=== PATIENT | male | born 1975 | race Caucasian/White ===

== ENCOUNTER 2025-01-17 16:25 | Outpatient (CLI) | payer OTHER, SELFPAY ==
[2025-01-17 17:40] LABS: Basophils Absolute Auto 0.1 K/mm3 (0.0-0.1); Basophils Percent Auto 1.1 % (0.2-1.2); Eosinophils Absolute Auto 0.5 K/mm3 (0-0.3); Eosinophils Percent Auto 6.6 % (0-4.4); Hematocrit 44.9 % (42.0-52.0); Hemoglobin 15.8 g/dL (14.0-18.0); Immature Granulocyte Absolute 0.02 K/mm3 (0.00-0.031); Immature Granulocyte Percent A 0.3 % (0-0.5); Lymphocytes Absolute Auto 2.75 K/mm3 (0.9-3.2); Lymphocytes Percent Auto 37.9 % (18.3-44.2); Mean Corpuscular HGB Conc 35.2 g/dl (32-36); Mean Corpuscular Hemoglobin 32.2 pg (26-34); Mean Corpuscular Volume 91.4 fl (80-100); Mean Platelet Volume 8.7 fl (7.4-10.4); Monocytes Absolute Auto 0.7 K/mm3 (0.1-0.6); Monocytes Percent Auto 9.6 % (2.6-8.5); Neutrophils Absolute Auto 3.2 K/mm3 (1.3-6.7); Neutrophils Percent Auto 44.5 % (45.5-73.1); Platelet Count Result 331 k/mm3 (150-375); Red Blood Count 4.91 M/mm3 (4.6-6.20); Red Cell Distribution Width 11.7 % (11.5-14.5); White Blood Count 7.3 K/mm3 (4.5-10.0)
[2025-01-17 18:01] LABS: Alanine Aminotransferase 59 U/L (6-50); Albumin Level 4.6 g/dL (3.5-5.1); Alkaline Phosphatase 67 U/L (38-126); Anion Gap 11 mmol/L (4-12); Aspartate Amino Transferase 38 U/L (17-59); Bilirubin,Total 0.5 mg/dL (0.2-1.3); Blood Urea Nitrogen 13 mg/dL (9-20); Calcium 9.4 mg/dL (8.4-10.2); Carbon Dioxide 28 mmol/L (22-30); Chloride 103 mmol/L (98-107); Cholesterol 230 mg/dL (0-200); Estimated Glomerular Filt Rate > 60; Glucose 83 mg/dL (65-110); HDL Direct 44 mg/dL; Sodium 142 mmol/L (137-145); Triglycerides 242 mg/dL (<150)
[2025-01-17 18:12] LABS: LDL Cholesterol Direct 136 mg/dL
== END 2025-01-17 16:26 | disposition home or self-care (01) ==
LOC: ANHLAB 16:26
PROVIDERS: PCP Nurse Practitioner Family; Visit Provider Nurse Practitioner Family
DX: Z00.00 Encounter for general adult medical examination without abnormal findings (principal); J45.909 Unspecified asthma, uncomplicated; Z76.89 Persons encountering health services in other specified circumstances
CPT/HCPCS: 36415; 80053; 80061; 84443; 85025

== ENCOUNTER 2025-11-11 12:37 | Emergency (ER) | payer OTHER, SELFPAY ==
--- NOTE | ~2025-11-11 | XR_ITS ---
EXAMINATION: XR chest 2V DATE: 11/11/2025 13:06 INDICATION: Chest pain TECHNIQUE: PA and lateral views of the chest were obtained. COMPARISON: None FINDINGS: The lungs are clear with no focal airspace opacities, pulmonary edema, pleural effusion or pneumothorax. The cardiomediastinal silhouette is normal. Visualized bones and soft tissues are unremarkable. IMPRESSION: 1. Normal chest radiograph. Reviewed, dictated and finalized at location A. RNMENT GUARD IMPRESSION: 1. Normal chest radiograph.
--- NOTE | 2025-11-11 12:38 | ECG_ITS ---
Test Date: 2025-11-11 12:46:03 Measurements Intervals Clifford Rate: 82 P: 40 TN: 154 QRS: 15 QRSD: 92 T: 18 QT: 362 QTc: 423 Interpretive Statements SINUS RHYTHM POSSIBLE LEFT ATRIAL ENLARGEMENT BORDERLINE ST-T WAVE ABNORMALITY- INFERIOR LEADS BORDERLINE ECG No previous ECG available for comparison Electronically Signed On 11-11-2025 13:20:04 TIP FIXER by Rohit Regalado D.O.
--- OUTSIDE RECORDS SUMMARY | 2025-11-11 12:39 | XMS_ITS | Clinical Summary ---
Author Organization [facility] Address [address] [place] [address] Care Team Providers Care Beater Lead Name Role Phone No, Physician Primary Care Provider [phone] Allergies No known active allergies Medications oseltamivir (TAMIFLU) 75 mg capsule Take 1 capsule (75 mg total) by mouth every 12 (twelve) hours 10 capsule 4 Active naproxen (NAPROSYN) 500 mg tablet Take 1 tablet (500 mg total) by mouth 2 (two) times a day as needed for pain or headaches 20 tablet 4 Active prochlorperazin e (COMPAZINE) 10 mg tablet Take 1 tablet (10 mg total) by mouth 2 (two) times a day as needed for nausea or vomiting 10 tablet 4 Active Social History Tobacco Use Types Packs/Day Years Used Date Smoking Tobacco: Never Assessed Personal Safety Answer Date Recorded Have you ever been in or are you currently in a harmful physical or emotional relationship or is someone making you feel afraid or unsafe? Denies 05/11/2024 Sex and Gender Information Value Date Recorded Sex Assigned at Not on file Legal Sex Male 4:07 PM CDT Gender Identity Not on file Sexual Orientation Not on file Last Filed Vital Signs Vital Sign Reading Time Taken Comments Blood Pressure 110/85 05/11/2024 1:40 PM CDT Pulse 75 05/11/2024 1:40 PM CDT Temperature 36.4 C (97.5 F) 05/11/2024 10:27 AM CDT Respiratory Rate 18 05/11/2024 1:40 PM CDT Oxygen Saturation 96% 05/11/2024 1:40 PM CDT Inhaled Oxygen Concentration - - Weight 83.9 kg (185 lb) 05/11/2024 10:27 AM CDT Height 177.8 cm (5' 10) 05/11/2024 10:27 AM CDT Body Mass Index 26.54 05/11/2024 10:27 AM CDT Plan of Treatment Health Maintenance Due Date Last Done Comments Colon Cancer Screening-Colonoscopy 1974 Depression Screening 1974 Hepatitis C Screening 1974 Prostate Cancer Screening-PSA 1974 DTaP/Tdap/Td Vaccine (1 - Tdap) 1985 Hepatitis B Screening 1992 Regular Well Visit/Exam 18-64 1992 Pneumococcal vaccine <65 (1 of 2 - PCV) 1993 Zoster Vaccine (1 of 2) 2024 Influenza Vaccine (#1) 2025 Insurance [facility] Our Security [employer]PP[employer] Address: [address] [address] [facility] [employer] Address: [address] [place] [id number] Care Teams Beater Lead Relationship Specialty Start Date End Date No, Physician PCP - General 04/11/23
--- OUTSIDE RECORDS SUMMARY | 2025-11-11 12:39 | XMS_ITS | Clinical Summary ---
Author Organization [facility] Address [address] [place] [address] Care Team Providers Care Admissions Consultant Name Role Phone Unavailable Primary Care Provider Unavailabl e Source Comments [facility],non-owned Affiliates and Associated Physician Practices is amultiple site organization consisting of ambulatory clinics and hospital sitesin [place], [place], [place] and [place]. This disclosure is being madepursuant to the Care Everywhere program and may not contain all information available regarding this patient. Last updated 18.[facility] [employer] Allergies No known active allergies Medications * Be aware that medications may not be up to date on this document. Alwaysverify current medications with the patient. ondansetron, disintegrating, (ZOFRAN ODT) 8 MG tablet Dissolve 1 Tab under the tongue every 4 hours as needed for Nausea/Vomiting Allow tablet to dissolve on the tongue 30 Tab 0 08/28/20 15 Active famotidine (PEPCID) 20 MG tablet Take 1 Tab by mouth at bedtime 30 Tab 0 08/28/20 15 Active naproxen (NAPROSYN) 500 MG tablet Take 1 Tab by mouth 2 times daily as needed for Pain 20 Tab 03/29/20 17 Active HYDROcodone-delicia taminophen (NORCO) 5-325 MG tablet Take 1 tablet by mouth every 6 hours as needed for Pain 15 tablet 03/13/20 20 Active hydrocortisone (ANUSOL-HC) 25 MG suppository Insert 1 suppository into the rectum 2 times daily 12 suppository 03/13/20 20 Active docusate sodium (COLACE) 100 MG capsule Take 1 capsule by mouth 2 times daily 20 capsule 03/13/20 20 Active cyclobenzaprine (Flexeril) 10 MG tablet Take 1 (one) tablet by mouth nightly as needed for Muscle Spasms 7 tablet 08/24/20 23 Active Social History Tobacco Use Types Packs/Day Years Used Date Smoking Tobacco: Never Smokeless Tobacco: Never Tobacco Cessation:Counseling Given: Not Answered Alcohol Use Standard Drinks/Week Comments Yes 0 (1 standard drink = 0.6 oz pure alcohol) 2 a day casually with dinner sometimes AUDIT-C Answer Date Recorded Q1: How often do you have a drink containing alc ohol? 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 Gender Identity Not on file Sexual Orientation Not on file Last Filed Vital Signs Vital Sign Reading Time Taken Comments Blood Pressure 134/104 08/24/2023 9:22 AM CDT Pulse 93 08/24/2023 9:22 AM CDT Temperature 36.7 C (98.1 F) 08/24/2023 9:22 AM CDT Respiratory Rate 20 08/24/2023 9:22 AM CDT Oxygen Saturation 97% 08/24/2023 10:29 AM CDT Inhaled Oxygen Concentration - - Weight 83.9 kg (185 lb) 08/24/2023 9:22 AM CDT Height 177.8 cm (5' 10) 08/24/2023 9:22 AM CDT Body Mass Index 26.54 08/24/2023 9:22 AM CDT Plan of Treatment Health Maintenance Due Date Last Done Comments COLOGUARD (AGES 45-75) - COL ON CA SCREENING 1974 COLON MONITORING 1974 COLONOSCOPY - COLON CA SCREENING 1974 CT COLONOGRAPHY - COLON CA SCREENING 1974 Colorectal Cancer Screening 1974 FIT - COLON CA SCREENING 1974 FLEX SIG - COLON CA SCREENING 1974 LIPID TESTING 1974 HIV SCREENING 1989 HEPATITIS C SCREENING 06/01/1992 DTAP/TDAP/TD VACCINES (1 - Tdap) 1993 HEPATITIS B VACCINE (1 of 3 - 19+ 3-dose series) 1993 PNEUMOCOCCAL VACCINE 50+ (1 of 1 - PCV) 2024 ZOSTER VACCINE (1 of 2) 2024 DEPRESSION SCREENING 11/20/2024 COVID-19 VACCINE (2 - 2024-2 6 season) 2025 04/05/2023 INFLUENZA VACCINE (#1) 2025 HIB VACCINE Aged Out No longer eligi ble based on patient's age to complete this topic HPV VACCINE Aged Out No longer eligi ble based on patient's age to complete this topic MENINGOCOCCAL (Group B) VACC INE SHARED DECISION-MAKING Aged Out No longer eligibl e based on patient's age to complete this topic MENINGOCOCCAL GROUPS A/C/Y/W VACCINE Aged Out No longer eligible b ased on patient's age to complete this topic Insurance [facility] [place] [address] [facility] Advance Directives Documents on File Type Date Recorded Patient Rf Manager Expl anation Adv Directive/Living Will/POA 03/29/2017 12:26 PM Medication Assistanc e Program
--- OUTSIDE RECORDS SUMMARY | 2025-11-11 12:39 | XMS_ITS | Clinical Summary ---
Author Organization [facility] Address [address] [place] [address] Care Team Providers Care Manager Of Procurement Name Role Phone Unavailable Primary Care Provider Unavailabl e Allergies Active Allergy Reactions Criticality Noted Date Comments Prednisone Other 12/10/2023 Psychiatric Medications traMADoL (ULTRAM) 50 mg tablet Take 1 tablet (50 mg total) by mouth at night if needed for severe pain. 20 tablet 05/29/2024 Active Active Problems No known active problems Social History Tobacco Use Types Packs/Day Years Used Date Smoking Tobacco: Never Assessed Sex and Gender Information Value Date Recorded Sex Assigned at Not on file Legal Sex Male 5:33 AM PDT Gender Identity Not on file Sexual Orientation Not on file Last Filed Vital Signs Vital Sign Reading Time Taken Comments Blood Pressure 151/92 06/05/2024 12:03 PM CDT Pulse - - Temperature - - Respiratory Rate - - Oxygen Saturation - - Inhaled Oxygen Concentration - - Weight - - Height - - Body Mass Index - - Plan of Treatment Health Maintenance Due Date Last Done Comments Dental Oral Exam 1974 Dental Prophylaxis 1974 Dental X-Ray: Bitewings 1974 Dental X-Ray: Full Mouth 1974 Dental X-Ray: Panoramic 05/30/2027 05/29/2024 Procedures Procedure Name Priority Date/Time Associated Diagnosis Comments PANORAMIC RADIOGRAPHIC IMAGE Routine 05/29/2024 10:30 AM CDT from Last 3 Months or Most Recently Relevant to Health Maintenance Insurance [facility] PPO
--- OUTSIDE RECORDS SUMMARY | 2025-11-11 12:39 | XMS_ITS | Encounter Summary ---
Author Organization [facility] Health Address [address] [place] [address] Care Team Providers Care Supervisor Tower Name Role Phone Unavailable Primary Care Provider Unavailabl e Prior Encounters Date Type Department Care Team Description 06/05/2024 Travel 06/05/2024 12:00 PM CDT Office Visit [facility] [address] [place] [address] Mariama Hamm DDS 05/29/2024 10:30 AM CDT Office Visit [facility] [address] [place] [address] Jocelyne Caraballo DDS Last Filed Vital Signs Vital Sign Reading Time Taken Comments Blood Pressure 151/92 06/05/2024 12:03 PM CDT Pulse - - Temperature - - Respiratory Rate - - Oxygen Saturation - - Inhaled Oxygen Concentration - - Weight - - Height - - Body Mass Index - - Plan of Treatment Not on file Procedures Procedure Name Priority Date/Time Associated Diagnosis Comments OS CONSULT Routine 06/05/2024 12:00 PM CDT 29 EXTRACTION, ERUPTED TOOTH REQUIRING REMOVAL OF BONE AND/OR SECTIONING OF TOOTH Routine 06/05/2024 12:00 PM CDT PANORAMIC RADIOGRAPHIC IMAGE Routine 05/29/2024 10:30 AM CDT BITEWING - SINGLE RADIOGRAPHIC IMAGE Routine 05/29/2024 10:30 AM CDT SINGLE X-RAY Routine 05/29/2024 10:30 AM CDT ADDITIONAL X-RAY Routine 05/29/2024 10:3 0 AM CDT LIMITED ORAL EVALUATION - PROBLEM FOCUSED Routine 05/29/2024 10:30 AM CDT Visit Diagnoses Not on file Insurance [facility] PPO
--- OUTSIDE RECORDS SUMMARY | 2025-11-11 12:39 | XMS_ITS | Clinical Summary ---
[facility] Address [address] [place] [address] Care Team Providers Care Commercial Carpenter Name Role Phone Capo Farrar MD Primary Care Provid er Allergies Active Allergy Reactions Criticality Noted Date Comments Prednisone Other (See Comments) 12/10/2023 Psychiatric Medications inhalational spacing device (Microchamber) SpacerIndications :Upper respiratory tract infection, unspecified type,Exacerbation of asthma, unspecified asthma severity, unspecified whether persistent,Shortn ess of breath Use with albuterol inhaler 1 Each 4 Active budesonide-formot Sharmin (SYMBICORT) 160-4.5 mcg/actuation HFA Aerosol InhalerIndication s:Moderate persistent asthma with acute exacerbation Take 2 Puffs by inhalation 2 times daily. 10.2 Gram 3 4 Active Active Problems Problem Noted Date Diagnosed Date Asthma 02/14/2014 Encounters Date Type Department Care Team Description 08/26/2025 Patient Outreach [facility] Primary Care [facility] [address] [place] [id number] Capo Farrar MD Primary Care Outreach from Last 3 Months Family History Medical History Relation Name Comments Other Father PTSD, [place] W ar Breast Cancer Maternal Aunt Lung Cancer Maternal Uncle 1 Cancer Maternal Uncle 2 liver Diabetes Mother Deanna Valdes LAD A Cancer Paternal Grandmother Thyroid Relation Name Status Comments Father Maternal Aunt Alive Maternal Uncle 1 Alive Maternal Uncle 2 Alive Mother Deanna Valdes Paternal Grandmother Social History Tobacco Use Types Packs/Day Years Used Date Smoking Tobacco: Never Smokeless Tobacco: Never Tobacco Cessation:Counseling Given: Not Answered Alcohol Use Standard Drinks/Week Comments Not Currently 0 (1 standard drink = 0.6 oz pur e alcohol) ocassionally Sex and Gender Information Value Date Recorded Sex Assigned at Not on file 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 Gender Identity Not on file Sexual Orientation Not on file 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 Not on file Not on file No t on file Last Filed Vital Signs Vital Sign Reading Time Taken Comments Blood Pressure 119/82 04/11/2024 8:01 AM CDT Pulse 100 04/11/2024 8:01 AM CDT Temperature 36.6 C (97.8 F) 12/14/2023 8:32 AM PLANTING MACHINE OPERATOR Respiratory Rate 16 12/10/2023 10:21 AM PLANTING MACHINE OPERATOR Oxygen Saturation 97% 04/11/2024 8:01 AM CDT Inhaled Oxygen Concentration - - Weight 92.4 kg (203 lb 9.6 oz) 04/11/2024 8:01 A M CDT Height 177.8 cm (5' 10) 04/11/2024 8:01 AM CDT Body Mass Index 29.21 04/11/2024 8:01 AM CDT Plan of Treatment Health Maintenance Due Date Last Done Comments DTAP/TDAP/TD VACCINES (1 - Tdap) 1993 HEPATITIS B VACCINES (1 of 3 - 19+ 3-dose series) 05/20 COLORECTAL SCREENING 2019 Colorectal Cancer Screening 2019 FIT-DNA Q 3 years 2019 FIT/FOBT Q 1 year 2019 Flex Sig/CT Colonography Q 5 years 2019 ZOSTER VACCINE (1 of 2) 2024 Preventative Visit- Commercial 11/20/2024 12/14/2023 INFLUENZA VACCINE (#1) 2025 COVID-19 Vaccine (2 - 2024- season) 2025 Insurance [employer] CHOICE [facility] CHOICE [id number] Care Teams Commercial Carpenter Relationship Specialty Start Date End Date Capo Farrar MD [address] [place] [address] [place] [phone] PCP - General Internal Medicine 12/14/23
[2025-11-11 12:40] VITALS: BP 117/80; PULSE 80; RESP 16; TEMP 36.6; O2SAT 98
[2025-11-11 13:01] LABS: Hematocrit 46.8 % (42.0-52.0); Hemoglobin 16.6 g/dL (14.0-18.0); Immature Granulocyte Percent A 0.3 % (0-0.5); Lymphocytes Absolute Auto 2.28 K/mm3 (0.9-3.2); Mean Corpuscular HGB Conc 35.5 g/dl (32-36); Mean Corpuscular Hemoglobin 32.1 pg (26-34); Mean Corpuscular Volume 90.5 fl (80-100); Nucleated Red Blood Cells Absolute Auto 0.000 K/mm3 (0.0-0.012); Nucleated Red Blood Cells Perc 0.0 % (0.0-0.2); Platelet Count Result 322 k/mm3 (150-375); Red Blood Count 5.17 M/mm3 (4.6-6.20); White Blood Count 7.2 K/mm3 (4.5-10.0)
[2025-11-11 13:13] LABS: Alanine Aminotransferase 50 U/L (6-50); Albumin Level 4.8 g/dL (3.5-5.1); Alkaline Phosphatase 89 U/L (38-126); Anion Gap 10 mmol/L (4-12); Aspartate Amino Transferase 37 U/L (17-59); Bilirubin,Total 0.8 mg/dL (0.2-1.3); Blood Urea Nitrogen 8 mg/dL (9-20); Calcium 9.6 mg/dL (8.4-10.2); Carbon Dioxide 26 mmol/L (22-30); Chloride 104 mmol/L (98-107); Estimated CRCL calculation 84 ml/min; Estimated Glomerular Filt Rate > 60; Glucose 88 mg/dL (65-110); Lipase 320 U/L (23-300); Potassium 4.3 mmol/L (3.4-5.0); Sodium 140 mmol/L (137-145); Total Protein 8.5 g/dL (6.3-8.2)
[2025-11-11 13:16] LABS: INR 1.1; Prothrombin Time 13.7 Seconds (11.1-14.7)
[2025-11-11 13:17] LABS: Partial Thromboplastin Time 27.7 Seconds (22.3-36.8)
[2025-11-11 13:24] LABS: Troponin I < 0.012 ng/mL (0.000-0.034)
[2025-11-11 14:40] VITALS: BP 122/89; PULSE 80; RESP 16; O2SAT 99
--- NOTE | 2025-11-11 15:33 | ECG_ITS ---
Test Date: 2025-11-11 15:36:12 Measurements Intervals Ed[place] Rate: 66 P: 39 [place]: 162 QRS: 9 QRSD: 99 T: 33 QT: 391 QTc: 411 Interpretive Statements SINUS RHYTHM LOW QRS VOLTAGE IN PRECORDIAL LEADS BORDERLINE ECG Compared to ECG 11/11/2025 12:46:03 Low QRS voltage now present Electronically Signed On 11-11-2025 15:57:42 COMBINED RAIL OPERATOR by Rohit Regalado D.O.
--- NOTE | 2025-11-11 15:49 | ED_ITS ---
HPI - Chest Pain General Chief Complaint: Chest Pain Stated Complaint: minor chest pain Time Seen by Provider: 11/11/25 15:18 Source: patient Mode of arrival: ambulatory Limitations: no limitations History of Present Illness HPI narrative: This is a 50-year-old male that presents to the ER for chest pain. Ongoing intermittently over the last couple of days. No known alleviating or exacerbating factors. No associated symptoms. Related Data Allergies Allergy/AdvReac Type Severity Reaction Status Date / Time prednisone AdvReac Severe Agitated Verified 11/11/25 12:42 Review of Systems 2 Review of Systems: All systems reviewed & are unremarkable except as noted in HPI and below PMFSH Past Medical History Medical History (Updated 11/11/25 @ 16:33 by Tamie Myers PA-C) PTSD (post-traumatic stress disorder) Seasonal allergies Asthma Surgical History Surgical History History of appendectomy Family History Family History Other Lung cancer Other Breast cancer Other Liver cancer Cerebrovascular accident Grandparent Thyroid cancer Mother Diabetes mellitus Hypertension Social History Social History Smoking status: Never smoker Alcohol intake: current Substance use: never Lack of Transportation: No Lack of Food: Often True Current Housing: I Have Housing Concerned About Future Housing: Decline to Answer Difficulty Paying Gas/Electric Bills: No Difficulty Paying for Meds: No Currently Unemployed: No Education: Master's Degree or Higher Difficulty w/ Childcare or Family Care: No Living arrangements: alone Occupation/Education: occupation Spiritual care concerns: No Agree to blood products: Yes Exam 2 Narrative: GENERAL: Well-appearing, well-nourished, and in no acute distress. HEAD: Normocephalic, atraumatic. EYES: EOMI. ENT: Nares clear, no rhinorrhea or epistaxis. Mucous membranes moist. Oropharynx without tonsillar hypertrophy exudate or other lesions. CHEST: Clear to auscultation. No respiratory distress. No wheezes rales or rhonchi HEART: Regular rate and rhythm. No murmur heard. Normal peripheral pulses. EXTREMITIES: Normal range of motion. No edema. SKIN: Warm, dry, no rash. NEURO: No focal deficits. Alert and oriented x3. PSYCH: Normal mood and affect Course Vital Signs Vital signs: Vital Signs Temperature 97.9 F 11/11/25 12:40 Pulse Rate 80 11/11/25 12:40 Respiratory Rate 16 11/11/25 12:40 Blood Pressure 117/80 11/11/25 12:40 Pulse Oximetry 98 11/11/25 12:40 Oxygen Delivery Room Air 11/11/25 12:40 Temperature 97.9 F 11/11/25 12:40 Pulse Rate 74 11/11/25 15:51 Respiratory Rate 19 11/11/25 15:51 Blood Pressure 139/96 H 11/11/25 15:51 Pulse Oximetry 99 11/11/25 15:51 Oxygen Delivery Room Air 11/11/25 15:44 MDM MDM Narrative Medical decision making narrative: Patient presents the emergency department for chest pain. Ongoing intermittently over the last several days. His vitals are stable. Cbc and metabolic panel without concerning findings. EKG without acute ST changes, baseline and 3 hour troponins are negative. Chest x-ray without acute cardiopulmonary abnormality. Heart score is 2. Patient is to have continued follow-up with PCP Differential Diagnosis Differential Diagnosis: Chest pain, angina, asthma, bronchitis, anxiety, GERD, pancreatitis Lab Data [facility] Lab Attestation statement: I personally reviewed the patient's lab results. 11/11/25 12:49 11/11/25 12:49 Labs: Lab Results 11/11/25 11/11/25 Range/Units 12:49 15:41 WBC 7.2 (4.5-10.0) K/mm3 RBC 5.17 (4.6-6.20) M/mm3 Hgb 16.6 (14.0-18.0) g/dL Hct 46.8 (42.0-52.0) % MCV 90.5 (80-100) fl MCH 32.1 (26-34) pg MCHC 35.5 (32-36) g/dl RDW 11.8 (11.5-14.5) % Plt Count 322 (150-375) k/mm3 MPV 8.5 (7.4-10.4) fl Immature Gran % (Auto) 0.3 (0-0.5) % Neut % (Auto) 53.3 (45.5-73.1) % Lymph % (Auto) 31.8 (18.3-44.2) % [place] % (Auto) 8.9 H (2.6-8.5) % Eos % (Auto) 4.7 H (0-4.4) % Baso % (Auto) 1.0 (0.2-1.2) % Lymph # (Auto) 2.28 (0.9-3.2) K/mm3 [place] # (Auto) 0.6 (0.1-0.6) K/mm3 Eos # (Auto) 0.3 (0-0.3) K/mm3 Baso # (Auto) 0.1 (0.0-0.1) K/mm3 Abs Immat Gran (auto) 0.02 (0.00-0.031) K/mm3 Absolute Neuts (auto) 3.8 (1.3-6.7) K/mm3 Absolute Nucleated RBC 0.000 (0.0-0.012) K/mm3 Nucleated RBC % 0.0 (0.0-0.2) % PT 13.7 (11.1-14.7) Seconds INR 1.1 APTT 27.7 (22.3-36.8) Seconds Sodium 140 (137-145) mmol/L Potassium 4.3 (3.4-5.0) mmol/L Chloride 104 (98-107) mmol/L Carbon Dioxide 26 (22-30) mmol/L Anion Gap 10 (4-12) mmol/L BUN 8 L D (9-20) mg/dL Creatinine 0.95 (0.7-1.3) mg/dL Estim Creat Clear Calc 84 ml/min Estimated GFR > 60 (59 - ) Glucose 88 (65-110) mg/dL Calcium 9.6 (8.4-10.2) mg/dL Total Bilirubin 0.8 (0.2-1.3) mg/dL AST 37 (17-59) U/L ALT 50 (6-50) U/L Alkaline Phosphatase 89 (38-126) U/L Troponin I < 0.012 < 0.012 (0.000-0.034) ng/mL Total Protein 8.5 H (6.3-8.2) g/dL Albumin 4.8 (3.5-5.1) g/dL Lipase 320 H (23-300) U/L Imaging Data Radiologist's impression: ITS Impressions Chest X-Ray 11/11/25 13:07 IMPRESSION: 1. Normal chest radiograph. ECG Data EKG #1: ECG completion date: 11/11/25 normal rate, sinus rhythm, no ST changes and normal QT Critical Care Time Critical Care Time Critical Care Time: No Discharge Plan Discharge Clinical Impression: Chest pain Qualifiers: Chest pain type: unspecified Qualified Code(s): R07.9 - Chest pain, unspecified Patient Disposition: Home Condition: Stable Instructions: Antibiotic Form Additional Instructions: Return to the emergency department if you experience fever, chest pain, shortness of breath, abdominal pain with nausea and vomiting, or any other symptoms that are concerning to you. Your blood work, EKG and imaging are re-assuring today Follow up with your primary care doctor Patient Language: Japanese Prescriptions: No Action budesonide-formoterol [Breyna] 160-4.5 mcg/actuation HFA aerosol inhaler 2 puff inhalation BID Qty: 30.6 1RF fluticasone propionate [Flonase Allergy Relief] 50 mcg/actuation spray,suspension 2 spray intranasal DAILY Qty: 16 5RF Rx Instructions: administer into each nostril albuterol sulfate 90 mcg/actuation HFA aerosol inhaler 2 inh inhalation Q4H PRN (Reason: shortness of breath or wheezing) Qty: 8.5 6RF Follow-up/Referrals: Isabel Bell APRN [Primary Care Provider, Internal Medicine] Quality HEART score for chest pain patients History: slightly suspicious ECG: normal Age: > 45 and < 65 years Risk factors: 1 or 2 risk factors Troponin: < or = to 1x normal limit Heart score: 2
[2025-11-11 15:51] VITALS: BP 139/96; PULSE 74; RESP 19; O2SAT 99
[2025-11-11] MEDS: ASPIRIN 81 MG CHEWABLE TABLET 324 MG PO (16:01)
[2025-11-11 16:12] LABS: Troponin I < 0.012 ng/mL (0.000-0.034)
--- OUTSIDE RECORDS SUMMARY | 2025-11-11 16:29 | XMS_ITS | Clinical Summary ---
Author Organization [facility] Health Address [address] [place] [address] Care Team Providers Care Alarm Technician Name Role Phone Unavailable Primary Care Provider [...] Most Recently Relevant to Health Maintenance Insurance [facility] PPO
--- OUTSIDE RECORDS SUMMARY | 2025-11-11 16:29 | XMS_ITS | Clinical Summary ---
Author Organization [facility] Address [address] [place] [address] Care Team Providers Care Wheel And Axle Inspector Name Role Phone No, Physician Primary Care Provider [phone] Allergies No known active allergies Medications oseltamivir [...] 2) 2024 Influenza Vaccine (#1) 2025 Insurance [facility] Care Teams Wheel And Axle Inspector Relationship Specialty Start Date End Date No, Physician PCP - General 04/11/23
--- OUTSIDE RECORDS SUMMARY | 2025-11-11 16:29 | XMS_ITS | Clinical Summary ---
Author Organization [facility] Address [address] [place] [address] Care Team Providers Care Gis Physical Scientist Name Role Phone Unavailable Primary Care Provider Unavailabl e Source Comments [facility],non-owned Affiliates and Associated Physician Practices is amultiple site organization consisting of ambulatory clinics and hospital sitesin [place], [place], [place] and [place]. This disclosure is being madepursuant to the Care Everywhere program and may not contain all information available regarding this patient. 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
--- OUTSIDE RECORDS SUMMARY | 2025-11-11 16:29 | XMS_ITS | Encounter Summary ---
Author Organization [facility] Health Address [address] [place] [address] Care Team Providers Care Facs Teacher Name Role Phone Unavailable Primary Care Provider Unavailabl e Prior Encounters Date Type Department Care Team Description 06/05/2024 Travel 06/05/2024 12:00 PM CDT Office Visit [facility] [address] [place] [address] Mariama Hamm DDS 05/29/2024 10:30 AM CDT Office Visit [facility] [address] [place] [address] Jocelyne Caraballo DDS Last Filed Vital Signs [...] CDT Visit Diagnoses Not on file Insurance [facility] PPO
--- OUTSIDE RECORDS SUMMARY | 2025-11-11 16:29 | XMS_ITS | Clinical Summary ---
[facility] Melani onofre Address [address] [place] [address] Care Team Providers Care Stock Speculator Name Role Phone Capo Farrar MD Primary [...] Department Care Team Description 08/26/[address] 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 CHOICE [facility] CHOICE [id number] Care Teams Stock Speculator Relationship Specialty Start Date End Date Capo Farrar MD [address] [place] [address] [place] [phone] PCP - General Internal Medicine 12/14/23
[2025-11-11 16:57] VITALS: BP 105/83; PULSE 71; RESP 16; O2SAT 98
== END 2025-11-11 16:59 | disposition home or self-care (01) ==
PROVIDERS: Emergency Medicine; Emergency Provider Physician Assistant; PCP Nurse Practitioner Family
DX: R07.9 Chest pain, unspecified (principal); J45.909 Unspecified asthma, uncomplicated; R94.31 Abnormal electrocardiogram [ECG] [EKG]
CPT/HCPCS: 36415; 71046; 80053; 83690; 84484; 85025; 85610; 85730; 93005; 99284; A9270